=== PATIENT | female | born 1965 | race Caucasian/White ===

== ENCOUNTER 2022-08-03 10:58 | Outpatient (CLI) | payer BC ==
--- NOTE | 2022-08-03 11:38 | Sleep Patient Instructions ---
Sleep Center Visit Summary - Patient Visit Information Reason for Visit: Initial consult for evaluation of sleep disordered breathing and other sleep issues. - Patient Instructions Instructions Attached: Sleep Study, Sleep Clinic Visit, Sleep Study Home Monitor Additional Instructions: You will be completing a sleep study, either an in-lab polysomnography (PSG) or home sleep study (HST). You will follow-up in the sleep care office after the sleep study is completed to hear the results and talk about therapy, if needed. You will be called by our office staff to schedule this appointment, but you may contact us with any questions. - Clinic Information Contact: [facility] [address] [place] [address] [email or web address] T: [phone]
--- NOTE | 2022-08-03 11:42 | SLEEP CARE CONSULTATION ---
Information from patient questionnaire entered by Petra Grimes. I have reviewed and concur with the information entered by Petra Grimes. This document represents the service I personally performed and the decisions made by me, Dalia Estrella ARNP. History of Present Illness Service Date and Time: 08/03/2022 1058 Reason for Visit: New patient Chief Complaint: reports: Unrefreshed sleep, Excessive daytime sleepiness, Fatigue, Frequent awakenings at night Date of Onset: 20 Months Usual bedtime: 830-10PM Time it takes to fall asleep: VERY FAST Snores at night: Yes Observed to quit breathing while asleep: No Sleeps alone due to snoring: No Number of times waking at night: 3-5 Reasons for waking at night: reports: Choking (infrequently), Bathroom, Other (UNKNOWN CLINCHING). denies: Snoring, Gasping for air Toss, Turn, or Twitch while sleeping: Yes Recalls having dreams: Yes Usually gets out of bed at: 5AM; weekends [id number] Feels refreshed in the morning: No Morning headache: Yes (2-3 times a week; 1-2HRS) Sleepy or fatigued during the day: Yes Ever fallen asleep while driving: No Takes day naps: Yes (only on weekends, for 20 minutes; in winter more) Dreams during day naps: No Prior sleep studies: No Additional HPI information: I had the pleasure of seeing SALONI RUSSELL today regarding the possibility of her having a sleep disorder. Her current complaints are unrefreshed sleep, excessive daytime sleepiness, fatigue and frequent night awakenings. She states since menopause she has been having issues. She has been having multiple tests to try to find reasons for her symptoms. She was referred to an plating foreman who told her that she may have sleep apnea. She is on hormone therapy now and is feeling better. She states she is active and a nutritional diet but cannot lose weight. She wears a mouth guard because she clenches her jaw at night. Her has told her she snores but no pauses in breathing. She states that since she has been on the hormone replacement therapy she has noted a improvement of most of her symptoms but she still cannot lose weight. 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 Patient is and lives in [facility]. Have you smoked in the past 12 months: No Alcohol use: Yes Alcohol amount and frequency: 1 DRINK OCCASIONALLY Caffeine use: Yes Caffeine amount and frequency: 3 CUPS COFFEE DAILY Family History Family history of sleep disordered breathing: Yes Family Hx Sleep Apnea: Mother: Snoring, Sleep apnea - Treated, Sibling: Snoring, Sleep apnea - Treated Allergies and Home Medications Known drug allergies: Yes (CODIENE) Drug allergies reviewed: Yes Home medication list reviewed: Yes Allergy and home medication list: Medications: Valsartan Metoprolol Progesterone Bioidentical hormone cream Womens Mult Vitamin D [place] magnesium Review of Systems Weight gain over past 5 years: 75 Cardiovascular: reports: high blood pressure Respiratory: denies: shortness of breath Gastrointestinal: denies: heartburn Urinary: reports: frequency, urgency Neurological: denies: headaches Psychiatric: denies: anxiety, depression Ear/Nose/Throat: denies: tonsillectomy (? was treated but no longer has it) Endocrine: reports: thyroid disease, sluggishness, too hot or cold, increased urination Musculoskeletal: reports: joint pain Immunologic: reports: allergies to food or environment Physical Exam Vital signs obtained and entered by: PETRA Soto MA Blood Pressure: 122/68 (LEFT ARM) Cuff size: long Heart Rate: 85 O2 Saturation: 100 Height: 5 ft 4.5 in Weight: 272 lb 3.2 oz Body Mass Index: 46.0 BMI Classification: Morbidly Obese Neck circumference: 18.5 Mouth and throat: narrow oropharynx Soft palate: long Hard palate: normal Uvula: normal Uvula visualization: 0% Mallampati Class IV Tongue: enlarged in size with teeth rubio on lateral edges Tonsils: 2+ Neck: normal w/o lymphadenopathy or thyromegaly Heart: regular rate and rhythm Lungs: clear bilaterally Impression and Plan 1. Suspected Obstructive Sleep Apnea-Hypopnea Syndrome, as suggested by a history of loud and irregular snoring, frequent awakening during the night, unrefreshed sleep and cognitive impairment. Narrow oropharynx and obesity are common predisposing factors for obstructive sleep apnea-hypopnea syndrome. I recommend proceeding to polysomnography to confirm the diagnosis and to assess severity. If the patient has significant sleep disordered breathing, a manual CPAP titration study will also be performed to find the optimal treatment pressure. I informed the patient of what the sleep studies involve and after some discussion, obtained agreement to proceed. The pathophysiology of obstruc tive sleep apnea-hypopnea syndrome was discussed with the patient and health risks of cardiovascular and cerebrovascular disease if not treated. Risks of drowsy driving discussed in detail and patient advised to avoid long distance driving and to extract puller at the first sign of drowsiness. Patient agreed to plan. * Schedule polysomnography +- manual CPAP titration study and return in 1-2 weeks after the study to discuss result and initiate therapy. * Avoid long distance driving or driving when feeling sleepy. * Avoid alcohol, sedative and muscle relaxant around bedtime. * Attempt to lose weight. * Review instructions provided by trained office staff on how to prepare for the sleep study. * Return for follow-up after sleep study completed. Counseling Topics: Weight loss health impact Visit Type: In Office Time Spent with Patient (minutes): 32 Provider Statement: I spent 100% of the Face to Face Visit with the patient with greater than 50% spent counseling the patient and coordination of care.
[2022-08-03 11:43] VITALS: BP 122/68
== END 2022-08-03 10:59 | disposition home or self-care (01) ==
LOC: SC 10:58
PROVIDERS: ATTEND Nurse Practitioner Family
DX: R53.83 Other fatigue (principal); G47.8 Other sleep disorders; R06.83 Snoring; I10 Essential (primary) hypertension; E66.01 Morbid (severe) obesity due to excess calories; Z68.42 Body mass index [BMI] 45.0-49.9, adult
CPT/HCPCS: 99203; 99212

== ENCOUNTER 2022-08-17 20:44 | Outpatient (CLI) | payer BC | END 2022-08-17 20:45 | disposition home or self-care (01) | LOC: SC 20:44 | PROVIDERS: ATTEND Nurse Practitioner Family | DX: G47.33 Obstructive sleep apnea (adult) (pediatric) (principal); E66.01 Morbid (severe) obesity due to excess calories; Z68.42 Body mass index [BMI] 45.0-49.9, adult | CPT/HCPCS: 95810 ==

== ENCOUNTER 2022-08-23 10:26 | Outpatient (CLI) | payer BC ==
--- NOTE | 2022-08-23 10:23 | SLEEP CARE CONSULTATION ---
Information from patient questionnaire entered by Molly Grimes. I have reviewed and concur with the information entered by Molly Grimes. This document represents the service I personally performed and the decisions made by , Dalia Estrella ARNP. History of Present Illness Service Date and Time: 08/23/2022 1000 Initial [place] Sleepiness Scale score: 3 (07/02/22) Current [place] Sleepiness Scale score: 8 (08/23/22) Additional HPI information: SALONI RUSSELL returns via video telehealth visit for follow up and results of the recently performed polysomnography. Patient shown to have severe obstructive sleep apnea with an AHI of 30.3 and amara oxygen saturation of 67%. I explained the pathophysiology behind obstructive sleep apnea. We then spent quite a bit of time discussing different treatment options. For mild obstructive sleep apnea, surgery and oral appliance are alternatives to nasal CPAP therapy but in moderate or severe cases, nasal CPAP is the most effective and reliable treatment. Because apnea is primarily in supine position, then positional management therapy could be effective. Methods discussed such as positioning with pillows, using a T-shirt with tennis balls in the back or commercial products that have a pillow format on back to prevent supine sleep. I reviewed the impact of weight changes on sleep apnea and strongly recommended losing weight. After some discussion, the patient opted to go with the nasal CPAP therapy. Nasal autoCPAP set at 4-15 cmH20 will be ordered with rationale explained. A manual titration study will be ordered if unable to find optimal pressure with office adjustmen ts. I explained how CPAP machine works and what to expect when using the machine. Using CPAP every night in order to get used to it was emphasized. Patient advised to put CPAP mask on before getting into bed so as not to fall asleep without CPAP. To assist acclimation to CPAP use, it could also be used for a short time during day while reading or watching TV. The patient was instructed to call the CPAP supplier to discuss any mechanical problem that may occur. If the mask given is uncomfortable or is difficult to keep on through the night even with adjustment, contact the CPAP supplier as many will replace with another mask style if notified before 30 days. If snoring or perceives is not getting enough air or too much air from the machine, notify this office. Patient was cautioned about risks of drowsy driving until sleepiness symptoms resolve. Sleep Study - Results Type of Sleep Study: Polysomnography (COMPLETED 08/17/22) Prior sleep studies: No Polysomnography/Home Sleep Study results: IMPRESSION: The quality of the study is good. The patient had minimally reduced sleep efficiency. The sleep architecture was abnormal for sleep fragmentation and reduced amount of time spent in slow wave sleep (N3). Respiratory monitoring showed severe obstructive sleep apnea-hypopnea (AHI = 30.3) associated with frequent arousals, oxyhemoglobin desaturation and moderate hypoxia (amara oxygen saturation of 67%). The respiratory events occurred more frequently during supine sleep (supine AHI = 64.1; non- supine = 25.25). Snore was light in intensity. There was no significant periodic leg movement of sleep. Cardiac rhythm was normal sinus rhythm without significant arrhythmia. No abnormal behavior (parasomnia) observed during the night. Allergies and Home Medications Known drug allergies: Yes (codeine) Drug allergies reviewed: Yes Home medication list reviewed: Yes (no changes) Allergy and home medication list: Allergies codeine Allergy (Verified 08/22/22 11:51) Review of Systems Review of systems same as previous: Yes (no changes) Physical Exam Vital signs obtained and entered by: MOLLY Soto MA Height: 5 ft 4.5 in (PER PT) Weight: 272 lb Body Mass Index: 45.9 BMI Classification: Morbidly Obese Impression and Plan 1. Obstructive Sleep Apnea-Hypopnea Syndrome, severe, with lowest oxygen saturation of 67%. Obviously this is the cause of the patients symptoms of unrefreshed sleep, and excessive daytime sleepiness. Positive pressure therapy could benefit hypertension. As mentioned above, the patient will be started on nasal autoCPAP therapy with pressure set at 4-15 cmH2O. Compliance guidelines also reviewed. A copy of compliance guidelines will be given for reference at check out. Because the apnea is more severe supine, I instructed to avoid sleeping supine using pillow positioning until able to start CPAP use. 2. Hypoxemia, moderate, with a amara oxygen saturation of 67% and 18.9 minutes spent under 90%. Her baseline oxygen saturation was normal with an average oxygen saturation of 94%. * Nasal auto CPAP therapy, pressure at 4-15 cm H2O. * Attempt to lose weight. * Avoid alcohol consumption near bedtime. * Avoid supine sleep until using CPAP. * The patient is again cautioned about driving until sleepiness completely resolves. * Return one month after CPAP obtained. I will assess response to therapy and compliance at that time. Counseling Topics: Weight loss health impact Visit Type: Telehealth Video Video Type: Doximity Patient Location: Work Location of Provider: Office Patient agrees and consents to this telehealth visit type: Yes Patient agrees to have their insurance billed: Yes Time Spent with Patient (minutes): 22 Provider Statement: I spent 100% of the Telehealth Video Call with the patient with greater than 50% spent counseling the patient and coordination of care.
== END 2022-08-23 10:27 | disposition home or self-care (01) ==
LOC: SC 10:26
PROVIDERS: ATTEND Nurse Practitioner Family
DX: G47.33 Obstructive sleep apnea (adult) (pediatric) (principal); R09.02 Hypoxemia; E66.01 Morbid (severe) obesity due to excess calories; Z68.42 Body mass index [BMI] 45.0-49.9, adult

== ENCOUNTER 2022-11-23 16:36 | Outpatient (CLI) | payer BC ==
--- NOTE | 2022-11-23 15:35 | SLEEP CARE CONSULTATION ---
Information from patient questionnaire entered by Molly Grimes. I have reviewed and concur with the information entered by Molly Grimes. This document represents the service I personally performed and the decisions made by , Dalia Estrella ARNP. History of Present Illness Service Date and Time: 11/23/2022 1500 Previous diagnosis: Severe, Obstructive Sleep Apnea-Hypopnea Syndrome AHI: 30.3 (08/2022) Reason for follow up: first compliance Equipment type: CPAP (RESMED Airsense 11, s/u ) Equipment obtained from: Other ([facility]) Mask style: Nasal pillows ([place] II) Backup mask available: Yes (other mask) Prior sleep studies: No Type of Sleep Study: Polysomnography (COMPLETED 08/17/22) HPI additional information: SALONI RUSSELL was diagnosed to have severe, AHI 30.3, obstructive sleep apnea- hypopnea syndrome and returns via video telehealth visit today for CPAP therapy first compliance follow-up. Sleep Study - Results Type of Sleep Study: Polysomnography (COMPLETED 08/17/22) Prior sleep studies: No CPAP Compliance Data - Data Reviewed with Patient Average duration of nightly device use: 4 hours 17 mins Compliance rate %: 53 (28/30 days used) Current pressure setting (cmH2O): 4-7 Average residual AHI: 1.2 Central apnea: 0 Obstructive apnea: 1 Hypopnea: 0.2 Average large leak: 0.9 L/min Subjective Patient concerns: reports: aerophagia. denies: mask discomfort, air blowing in eyes, mask leak noise, condensation in mask/hose, nasal congestion, dry mouth, nose, throat, epistaxis Observed to snore while using device: No Current pressure setting perceived as: comfortable (not sure) On therapy, patient: reports: other (feels like she is doing worse with using the CPAP) Initial [place] Sleepiness Scale score: 3 (07/02/22) Current [place] Sleepiness Scale score: 12 (11/23/22) Allergies and Home Medications Known drug allergies: Yes (codeine) Drug allergies reviewed: Yes Home medication list reviewed: Yes (no changes) Allergy and home medication list: Allergies codeine Allergy (Verified 11/22/22 14:50) Review of Systems Review of systems same as previous: Yes (no changes) Physical Exam Vital signs obtained and entered by: MOLLY Soto MA Height: 5 ft 4.5 in (PER PT) Weight: 277 lb (PER PT) Body Mass Index: 46.7 BMI Classification: Morbidly Obese Impression and Plan 1. Obstructive Sleep Apnea-Hypopnea Syndrome, severe, with fair treatment compliance and good apnea control. Patient states she is not feeling better with using her CPAP. She feels she is more tired. She has tried 3 different types of masks and is not happy with the fit. They are blowing air in her face and mask leaking. She is not wanting to stop CPAP therapy but is frustrated that things are not going well and she is not feeling better. I offered to have her stop by so we can help her with the mask when she is in [place]. I will have her follow up in 1-2 months. Patient's apnea severity and rationale for treatment to reduce apnea, improve sleep quality and reduce cardiovascular and cerebrovasc ular events was reviewed. I also reviewed the benefit of consistent device use of CPAP for hypertension. 2. Obesity, unspecified. Currently patients BMI is 46.7. Obesity increases the risk of apnea, CPAP pressure requirements and overall health risks especially cardiovascular and diabetes. Thus patient is advised to lose weight. * Continue auto CPAP pressure at 4-7 cmH2O * Notify me if snoring with mask or feeling that the pressure is too much or too little * Attempt to lose weight * Call this office if any problems using CPAP * Return for follow up in 1-2 months, or sooner if concerns arise Counseling Topics: Weight loss health impact Visit Type: [facility]health [facility] Patient Location: Work Location of Provider: Office Patient agrees and consents to this telehealth visit type: Yes Patient agrees to have their insurance billed: Yes Time Spent with Patient (minutes): 30 Provider Statement: I spent 100% of the Telehealth Video Call with the patient with greater than 50% spent counseling the patient and coordination of care.
== END 2022-11-23 16:37 | disposition home or self-care (01) ==
LOC: SC 16:36
PROVIDERS: ATTEND Nurse Practitioner Family
DX: G47.33 Obstructive sleep apnea (adult) (pediatric) (principal); E66.01 Morbid (severe) obesity due to excess calories; Z68.42 Body mass index [BMI] 45.0-49.9, adult

== ENCOUNTER 2023-04-09 15:59 | Outpatient (CLI) | payer BC ==
--- NOTE | 2023-04-09 15:56 | SLEEP CARE CONSULTATION ---
Information from patient questionnaire entered by Petra Grimes. I have reviewed and concur with the information entered by Petra Grimes. This document represents the service I personally performed and the decisions made by , Dalia Estrella ARNP. History of Present Illness Service Date and Time: 04/09/2023 1540 Previous diagnosis: Severe, Obstructive Sleep Apnea-Hypopnea Syndrome AHI: 30.3 (08/2022) Reason for follow up: other (4 MONTH F/U) Equipment type: CPAP (RESMED Airsense 11, s/u 08/2022) Equipment obtained from: Other ([facility]; not getting supplies due to non-compliance) Mask style: Nasal pillows ([place] II) Backup mask available: No Last cushion change: 6 weeks Prior sleep studies: No Type of Sleep Study: Polysomnography (COMPLETED 08/17/22) HPI additional information: SALONI RUSSELL was diagnosed to have severe, AHI 30.3, obstructive sleep apnea- hypopnea syndrome and returned today for CPAP therapy 4 month follow-up. Sleep Study - Results Type of Sleep Study: Polysomnography (COMPLETED 08/17/22) Prior sleep studies: No CPAP Compliance Data - Data Reviewed with Patient Average duration of nightly device use: 3 HRS 41 MINS Compliance rate %: 23 (12/06/22-04/04/23; 74/120 days used) Current pressure setting (cmH2O): 4-7 Average residual AHI: 0.2 Central apnea: 0 Obstructive apnea: 0.1 Average large leak: 0 L/min Subjective Missed days of use due to: reports: mask issues (mask worn out), illness, other (taking mask off) Patient concerns: denies: aerophagia, mask discomfort, air blowing in eyes, mask leak noise, condensation in mask/hose, nasal congestion, dry mouth, nose, throat, epistaxis Observed to snore while using device: No Current pressure setting perceived as: comfortable On therapy, patient: reports: sleeping better, awakening more refreshed, being more awake and alert during the day, more rested overall. denies: drowsiness while driving Initial [place] Sleepiness Scale score: 3 (07/02/22) Current [place] Sleepiness Scale score: 1 Allergies and Home Medications Known drug allergies: Yes (as listed) Drug allergies reviewed: Yes Home medication list reviewed: Yes (no changes) Allergy and home medication list: Allergies codeine Allergy (Verified 04/05/23 16:24) Review of Systems Review of systems same as previous: Yes (no changes) Physical Exam Vital signs obtained and entered by: PETRA Soto MA Height: 5 ft 4.5 in (PER PT) Weight: 272 lb Body Mass Index: 45.9 BMI Classification: Morbidly Obese Impression and Plan 1. Obstructive Sleep Apnea-Hypopnea Syndrome, severe, with poor treatment compliance and good apnea control. On CPAP therapy, the patient has better sleep quality and is more rested overall. Patient has been unable to get supplies since her compliance has been so poor. We did help her with a mask through the office that she says is working well but then she got an upper respiratory illness and has been so congested she cannot use her mask. She says when she lays down the irritation in throat causes her to cough continuously and she can want to keep the mask on at that time. I suggested that she try nasal saline spray in her nose to help relieve congestion. She may also use [id number] Flonase as needed before bedtime. She voiced understanding and agreement. I will have her followup in 1-2 months to recheck compliance. Patient was encouraged to reach out to us if she needs more supplies in the meantime to be able to use her machine until we are able to get her compliance up in the next couple of months. She voiced understanding and appreciation. Patient's apnea severity and rationale for treatment to reduce apnea, improve sleep quality and reduce cardiovascular and cerebrovascular events was reviewed. I also reviewed the benefit of consistent device use of CPAP for hypertension. 2. Obesity, unspecified. Currently patients BMI is 45.9. Obesity increases the risk of apnea, CPAP pressure requirements and overall health risks especially cardiovascular and diabetes. Thus patient is advised to lose weight. * Continue auto CPAP pressure at 4-7 cmH2O * Notify me if snoring with mask or feeling that the pressure is too much or too little * Attempt to lose weight * Call this office if any problems using CPAP * Return for follow up in 1-2 months, or sooner if concerns arise Counseling Topics: Spare mask, Weight loss health impact Follow up with Sleep Care in: 1-2 months Visit Type: Telehealth Video Video Type: Doximity Patient Location: Car Location of Provider: Office Patient agrees and consents to this telehealth visit type: Yes Patient agrees to have their insurance billed: Yes Time Spent with Patient (minutes): 16 Provider Statement: I spent 100% of the Telehealth Video Call with the patient with greater than 50% spent counseling the patient and coordination of care.
== END 2023-04-09 16:00 | disposition home or self-care (01) ==
LOC: SC 15:59
PROVIDERS: ATTEND Nurse Practitioner Family
DX: G47.33 Obstructive sleep apnea (adult) (pediatric) (principal); E66.01 Morbid (severe) obesity due to excess calories; Z68.42 Body mass index [BMI] 45.0-49.9, adult

== ENCOUNTER 2023-05-24 15:46 | Outpatient (CLI) | payer BC ==
--- NOTE | 2023-05-24 16:04 | SLEEP CARE CONSULTATION ---
Information from patient questionnaire entered by Petra Grimes. I have reviewed and concur with the information entered by Petra Grimes. This document represents the service I personally performed and the decisions made by , Dalia Estrella ARNP. History of Present Illness Service Date and Time: 05/24/2023 1546 Previous diagnosis: Severe, Obstructive Sleep Apnea-Hypopnea Syndrome AHI: 30.3 (08/2022) Reason for follow up: other (6 WEEK F/U) Equipment type: CPAP (RESMED Airsense 11, s/u 08/2022) Equipment obtained from: Other ([facility]; not getting supplies due to non-compliance) Mask style: Nasal pillows (Mayer II) Prior sleep studies: No Type of Sleep Study: Polysomnography (COMPLETED 08/17/22) HPI additional information: SALONI RUSSELL was diagnosed to have severe, AHI 30.3, obstructive sleep apnea- hypopnea syndrome and returns via video appointment today for CPAP therapy six week follow-up. Sleep Study - Results Type of Sleep Study: Polysomnography (COMPLETED 08/17/22) Prior sleep studies: No CPAP Compliance Data - Data Reviewed with Patient Average duration of nightly device use: 1 HRS 4 MINS Compliance rate %: 0 (03/21/23-05/03/23; 44 days used) Current pressure setting (cmH2O): 4-7 Average residual AHI: 0 Subjective Initial [place] Sleepiness Scale score: 3 (07/02/22) Current [place] Sleepiness Scale score: 1 (05/24/23) Allergies and Home Medications Known drug allergies: Yes (as listed) Drug allergies reviewed: Yes Home medication list reviewed: Yes (no changes) Allergy and home medication list: Allergies codeine Allergy (Verified 05/22/23 12:38) Review of Systems Review of systems same as previous: Yes (no changes) Physical Exam Vital signs obtained and entered by: PETRA Soto MA Height: 5 ft 5 in (PER PT) Weight: 274 lb (PER PT) Body Mass Index: 45.6 BMI Classification: Morbidly Obese Impression and Plan 1. Obstructive Sleep Apnea-Hypopnea Syndrome, severe, with poor treatment compliance and good apnea control. Patient states she still struggles with being able to use the mask in she cannot get more supplies from her DME supplier because she is not compliant using her mask. We have provided her with a few free mask through the office but she still struggles with being able to use her CPAP and finally just decided not to use it anymore. We will discontinue the CPAP therapy. I reviewed with patient other options including oral appliance with positional therapy, Inspire Implant therapy or other surgical options. She requested a referral for the Inspire Implant and then will also do some research online to see if this is something she would like to do. I will send the ref erral and follow-up with her as needed. Patient's apnea severity and rationale for treatment to reduce apnea, improve sleep quality and reduce cardiovascular and cerebrovascular events was reviewed. I also reviewed the benefit of consistent device use of CPAP for hypertension. 2. Obesity, unspecified. Currently patients BMI is 45.6. Obesity increases the risk of apnea, CPAP pressure requirements and overall health risks especially cardiovascular and diabetes. Thus patient is advised to lose weight. * Discontinue CPAP * Referral to Dr. Hart for evaluation for Inspire Implant or other surgical options * Attempt to lose weight * Call this office if any problems * Return for follow up as needed, or sooner if concerns arise Prescriptions: Other (Inspire Implant referral) Follow up with Sleep Care in: as needed Visit Type: Telehealth Video Video Type: Doximity Patient Location: Work Location of Provider: Office Patient agrees and consents to this telehealth visit type: Yes Time Spent with Patient (minutes): 31 Provider Statement: I spent 100% of the Telehealth Video Call with the patient with greater than 50% spent counseling the patient and coordination of care.
== END 2023-05-24 15:47 | disposition home or self-care (01) ==
LOC: SC 15:46
PROVIDERS: ATTEND Nurse Practitioner Family
DX: G47.33 Obstructive sleep apnea (adult) (pediatric) (principal); E66.01 Morbid (severe) obesity due to excess calories; Z68.42 Body mass index [BMI] 45.0-49.9, adult
CPT/HCPCS: 99443